=== PATIENT | male | born 1945 | race Caucasian/White ===

== ENCOUNTER 2018-07-18 21:40 | Emergency (ER) | payer MEDICARE, MEDICAID ==
[~2018-07-18] VITALS: Ht 172.7 cm; Wt 78.6 kg
[~2018-07-18 21:40] MED LIST: DOXYCYCL HYC100 MG PO; DUONEB IN; HOME NEBULIZER; LORTAB5 OR; MEDDOSEPAK PO; OMEGA-3 FISH1000 MG PO
[2018-07-18] MEDS ORDERED: ANORO ELLIPTA 61 AER IN (22:03)
[2018-07-18] MEDS ORDERED: LEVOTHYROXIN125 MCG PO (22:04)
[2018-07-18] MEDS ORDERED: PROAIR HFA108 MCG/AC IN (22:05)
[2018-07-18 22:19] LABS: HEMATOCRIT 47.7 % (39.0-50.0); HEMOGLOBIN 16.6 g/dl (14.0-18.0); IMMATURE GRANULOCYTES 0.4 % (0.0-5.0); MEAN CELL VOLUME 100.6 fL CALC (80.0-100.0); MEAN CORPUSCULAR HGB CONC 34.8 g/L CALC (32.0-36.0); NEUT# 8.03 thou/uL (1.82-7.42); RED BLOOD COUNT 4.74 mill/uL (4.70-6.10); RED CELL DISTRI WIDTH 12.3 % (11.5-15.5)
[2018-07-18 22:44] LABS: ANION GAP 14 (6-22 (CALC)); BILIRUBIN, TOTAL 0.6 mg/dL (0.0-1.4); CARBON DIOXIDE 28 mmol/l (22-30); CHLORIDE 103 mmol/l (95-108); GFR > 60 ML/MIN (>=60 (CALC)); GFR FOR AFR.AMER. > 60 ML/MIN (>=60 (CALC)); POTASSIUM 4.6 mmol/l (3.5-5.1); SODIUM 140 mmol/l (137-146)
[2018-07-18 22:50] LABS: INTERNATIONAL NORMALIZED RATIO 0.9 RATIO (0.7-1.3); PROTHROMBIN TIME 9.9 SECONDS (9.0-12.5)
[2018-07-18 23:07] LABS: ALKALINE PHOSPHATASE 76 u/l (38-126); BUN 11 mg/dL (8-23); BUN/CREATININE RATIO 11 (12-20 (CALC)); SGOT/AST 32 u/l (19-48); TOTAL PROTEIN 7.5 g/dL (6.3-8.2)
[2018-07-18 23:19] LABS: MYOGLOBIN 59 ng/mL (0 - 121)
[2018-07-19 00:34] VITALS: BP 148/72
== END 2018-07-18 23:55 | disposition short-term general hospital (02) ==
LOC: ED 21:40
PROVIDERS: Emergency Medicine
DX: J44.1 Chronic obstructive pulmonary disease with (acute) exacerbation (principal)
CPT/HCPCS: J3475

== ENCOUNTER → 2018-09-20 | Outpatient (REF) | payer MEDICARE, MEDICAID ==
[~2018-09-20] MED LIST changes: +ANORO ELLIPTA 61 AER IN; +LEVOTHYROXIN125 MCG PO; +PROAIR HFA108 MCG/AC IN
[2018-09-20 13:41] LABS: MEAN CELL VOLUME 100.3 fL CALC (80.0-100.0); MEAN CORPUSCULAR HGB 33.1 pG CALC (26.0-32.0); RED BLOOD COUNT 3.99 mill/uL (4.70-6.10); RED CELL DISTRI WIDTH 13.5 % (11.5-15.5)
[2018-09-20 13:50] LABS: HEMOGLOBIN 13.2 g/dl (14.0-18.0)
[2018-09-20 14:04] LABS: ALBUMIN 4.2 g/dL (3.2-5.0); ALKALINE PHOSPHATASE 63 u/l (38-126); ANION GAP 14 (6-22 (CALC)); BILIRUBIN, TOTAL 0.9 mg/dL (0.0-1.4); BUN 10 mg/dL (8-23); BUN/CREATININE RATIO 13 (12-20 (CALC)); CALCULATED LDLCHOLESTEROL 99 mg/dL (62-129 (CALC)); CARBON DIOXIDE 29 mmol/l (22-30); CHLORIDE 101 mmol/l (95-108); CHOLESTEROL HDL RATIO 2.5 (<4.4 (CALC)); CREATININE 0.8 mg/dL (0.7-1.3); GFR > 60 ML/MIN (>=60 (CALC)); GFR FOR AFR.AMER. > 60 ML/MIN (>=60 (CALC)); HDL CHOLESTEROL 76 mg/dL (>=40); POTASSIUM 4.5 mmol/l (3.5-5.1); SGOT/AST 20 u/l (19-48); SODIUM 139 mmol/l (137-146); TOTAL CHOLESTEROL 189 mg/dl (0-199); TOTAL PROTEIN 6.4 g/dL (6.3-8.2); TOTAL TRIGLYCERIDES 70 mg/dl (30-149); VLDL CHOLESTROL 14 mg/dl (0-38 (CALC))
[2018-09-20 14:32] LABS: TSH, 3RD GENERATION 2.04 uIU/mL (0.47 - 4.68)
== END | disposition home or self-care (01) ==
LOC: LAB 12:41
PROVIDERS: ATTEND Nurse Practitioner
DX: I25.10 Atherosclerotic heart disease of native coronary artery without angina pectoris (principal); E03.9 Hypothyroidism, unspecified; R53.83 Other fatigue; R06.02 Shortness of breath